=== PATIENT | male | born 1985 | race Caucasian/White ===

== ENCOUNTER 2017-12-22 09:06 | Emergency (ER) | payer BC ==
[2017-12-22 09:16] VITALS: BP 139/91
[2017-12-22] MEDS ORDERED: LORazepam 1 MG Tab PO ONE (09:34)
--- NOTE | 2017-12-22 10:44 | CR ---
Chest: Two views of the chest were obtained. Comparison: No prior chest x-ray. Heart size and mediastinum are normal. Lungs are clear. Plate and screws affix an old healed left clavicle fracture. Impression: 1. Incidental finding. Nothing acute is seen on two-view chest x-ray. Diagnostic code #2
--- NOTE | 2017-12-22 10:53 | EDM.PDOCBH ---
ED HPI GENERAL MEDICAL PROBLEM - General Chief Complaint: Behavioral/Psych Stated Complaint: ANXIETY Time Seen by Provider: 12/22/17 09:21 Source of Information: Reports: Patient History Limitations: Reports: No Limitations - History of Present Illness INITIAL COMMENTS - FREE TEXT/NARRATIVE: The patient presents with an anxiety attack. He was at work when this started. He has been having trouble with anxiety and depression lately. He saw his doctor and he was put on hydroxyzine and venlafaxine. This has been going on for a few weeks. He recently lost his dog and that made things worse. He has lost interest in doing things. He is scheduled to see Dr Tripp. He has no other medical problems. He has no suicidal ideation. He did get chest pain and shortness of breath. Onset: Gradual Duration: Week(s): Location: Reports: Chest Quality: Reports: Pressure Severity: Mild Improves with: Reports: None Worsens with: Reports: None Associated Symptoms: Reports: Chest Pain, Shortness of Breath. Denies: Fever/ Chills, Headaches, Nausea/Vomiting - Related Data Allergies Allergy/AdvReac Type Severity Reaction Status Date / Time codeine Allergy Nausea Verified 08/15/16 03:44 Home Meds: Home Meds LORazepam [Ativan] 1 mg PO Q8H PRN #5 tab 12/22/17 [Rx] Venlafaxine HCl [Venlafaxine ER] 75 mg PO DAILY 12/22/17 [History] hydrOXYzine HCl [Atarax] 25 mg PO QID PRN 12/22/17 [History] Past Medical History Genitourinary History: Reports: Renal Calculus Other Genitourinary History: blocked ureter Psychiatric History: Reports: Anxiety, Depression - Past Surgical History GI Surgical History: Reports: Other (See Below) Social & Family History - Tobacco Use Smoking Status *Q: Never Smoker Second Hand Smoke Exposure: No - Caffeine Use Caffeine Use: Reports: Coffee - Recreational Drug Use Recreational Drug Use: Yes Drug Use in Last 12 Months: Yes Recreational Drug Type: Reports: Marijuana/Hashish - Living Situation & Occupation Living situation: Reports: Occupation: Employed ED ROS GENERAL - Review of Systems Review Of Systems: See Below Constitutional: Reports: No Symptoms HEENT: Reports: No Symptoms Respiratory: Reports: Shortness of Breath Cardiovascular: Reports: Chest Pain Endocrine: Reports: No Symptoms GI/Abdominal: Reports: No Symptoms : Reports: No Symptoms Musculoskeletal: Reports: No Symptoms Skin: Reports: No Symptoms Neurological: Reports: No Symptoms ED EXAM, BEHAVIORAL HEALTH - Physical Exam Exam: See Below Exam Limited By: No Limitations General Appearance: Alert, No Apparent Distress Ears: Normal External Exam Nose: Normal Inspection Head: Atraumatic, Normocephalic Neck: Normal Inspection Respiratory/Chest: No Respiratory Distress, Lungs Clear, Normal Breath Sounds Cardiovascular: Regular Rate, Rhythm, No Edema, No Murmur GI/Abdominal: Soft, Non-Tender, No Organomegaly, No Mass Back Exam: Normal Inspection Extremities: Normal Inspection EKG INTERPRETATION EKG Date: 12/22/17 Time: 10:02 Rhythm: Other (Sinus bradycardia) Rate (Beats/Min): 50 [place]: Normal P-Wave: Present QRS: Normal ST-T: Normal QT: Normal COURSE, BEHAVIORAL HEALTH COMP - Course Vital Signs: Last Vital Signs Temp 97.6 F 12/22/17 09:20 Pulse 57 L 12/22/17 09:20 Resp 19 12/22/17 09:20 BP 139/91 H 12/22/17 09:20 Pulse Ox 100 12/22/17 09:20 Orders, Labs, Meds: Active Orders 24 hr Category Date Time Status Cardiac Monitoring [RC] . DIRECTED Care 12/22/17 09:31 Active EKG Documentation Completion [RC] STAT Care 12/22/17 09:32 Active Laboratory Tests 12/22/17 12/22/17 12/22/17 Range/Units 09:50 09:59 09:59 WBC 14.30 H (4.23-9.07) K/mm3 RBC 5.57 (4.63-6.08) M/mm3 Hgb 16.0 (13.7-17.5) gm/L Hct 46.5 (40.1-51.0) % MCV 83.5 (79.0-92.2) fl MCH 28.7 (25.7-32.2) pg MCHC 34.4 (32.2-35.5) g/dl RDW Std Deviation 41.9 (35.1-43.9) fL Plt Count 251 (163-337) K/mm3 MPV 10.8 (9.4-12.3) fl Neut % (Auto) 82.1 H (34.0-67.9) % Lymph % (Auto) 11.1 L (21.8-53.1) % [place] % (Auto) 5.9 (5.3-12.2) % Eos % (Auto) 0.3 L (0.8-7.0) Baso % (Auto) 0.3 (0.1-1.2) % Neut # (Auto) 11.74 H (1.78-5.38) K/mm3 Lymph # (Auto) 1.59 (1.32-3.57) K/mm3 [place] # (Auto) 0.84 H (0.30-0.82) K/mm3 Eos # (Auto) 0.04 (0.04-0.54) K/mm3 Baso # (Auto) 0.05 (0.01-0.08) K/mm3 Sodium 141 (136-145) mEq/L Potassium 3.6 (3.5-5.1) mEq/L Chloride 103 (98-107) mEq/L Carbon Dioxide 21 (21-32) mEq/L Anion Gap 20.6 H (5-15) BUN 19 H (7-18) mg/dL Creatinine 1.2 (0.7-1.3) mg/dL Est Cr Clr Drug Dosing 98.80 mL/min Estimated GFR (MDRD) > 60 (>60) mL/min BUN/Creatinine Ratio 15.8 (14-18) Glucose 101 (74-106) mg/dL Calcium 9.2 (8.5-10.1) mg/dL Total Bilirubin 1.5 H (0.2-1.0) mg/dL AST 26 (15-37) U/L ALT 37 (16-63) U/L Alkaline Phosphatase 65 (46-116) U/L Troponin I < 0.017 (0.00-0.056) ng/mL Total Protein 8.1 (6.4-8.2) g/dl Albumin 4.7 (3.4-5.0) g/dl Globulin 3.4 gm/dL Albumin/Globulin Ratio 1.4 (1-2) TSH 3rd Generation 2.528 (0.358-3.74) uIU/mL Urine Opiates Screen Negative (NEGATIVE) Ur Buprenorphine Scrn Negative (NEGATIVE) Ur Oxycodone Screen Negative (NEGATIVE) Urine Methadone Screen Negative (NEGATIVE) Ur Propoxyphene Screen Negative (NEGATIVE) Ur Barbiturates Screen Negative (NEGATIVE) Ur Tricyclics Screen Negative (NEGATIVE) Ur Phencyclidine Scrn Negative (NEGATIVE) Ur Amphetamine Screen Negative (NEGATIVE) U Methamphetamines Scrn Negative (NEGATIVE) U Benzodiazepines Scrn Negative (NEGATIVE) U Cocaine Metab Screen Negative (NEGATIVE) U Marijuana (THC) Screen Presumptive positive H (NEGATIVE) Ethyl Alcohol 0.00 (0.00) gm% Medications Discontinued Medications Generic Name Dose Route Start Last Admin Trade Name Freq PRN Reason Stop Dose Admin Lorazepam 1 mg 12/22/17 09:34 12/22/17 09:49 Ativan PO 12/22/17 09:35 1 mg ONETIME ONE Administration Re-Assessment/Re-Exam: I ordered an EKG, labs, CXR and ativan. His EKG shows a sinus bradycardia. His CXR looks good. His WBC was elevated at 14.3. His troponin was negative. His TSH was negative. His marijuana was presumptive positive. His ETOH was zero. Departure - Departure Time of Disposition: 11:05 Disposition: Home, Self-Care 01 Condition: Good Clinical Impression: Anxiety - Discharge Information Prescriptions: LORazepam [Ativan] 1 mg PO Q8H PRN #5 tab PRN Reason: Anxiety Referrals: Ayanna Arevalo, ADMITTANCE ATTENDANT [Primary Care Provider] - 1 Week Forms: ED Department Discharge Additional Instructions: Take your medication as prescribed. You may also take the ativan as needed for anxiety. Follow up with your psychiatrist as scheduled. Please return if you are worse. - My Orders Last 24 Hours: My Active Orders 12/22/17 09:31 Cardiac Monitoring [RC] . DIRECTED 12/22/17 09:32 EKG Documentation Completion [RC] STAT - Assessment/Plan Last 24 Hours: My Active Orders 12/22/17 09:31 Cardiac Monitoring [RC] . DIRECTED 12/22/17 09:32 EKG Documentation Completion [RC] STAT
== END 2017-12-22 11:10 | disposition home or self-care (01) ==
LOC: JD.ED 09:06
DX: F41.9 Anxiety disorder, unspecified (principal); F32.9 Major depressive disorder, single episode, unspecified; Z79.899 Other long term (current) drug therapy; Z88.5 Allergy status to narcotic agent
CPT/HCPCS: 36415; 71046; 80053; 80306; 84443; 84484; 85025; 93005; 99284; A9270; G0480; 93010

== ENCOUNTER 2018-12-26 15:43 | Emergency (ER) | payer SELFPAY ==
[2018-12-26 16:06] VITALS: BP 136/85
--- NOTE | 2018-12-26 16:57 | EDM.PDOC ---
ED HPI GENERAL MEDICAL PROBLEM - General Chief Complaint: ENT Problem Stated Complaint: SORE THROAT Time Seen by Provider: 12/26/18 16:01 Source of Information: Reports: Patient, RN Notes Reviewed History Limitations: Reports: No Limitations - History of Present Illness INITIAL COMMENTS - FREE TEXT/NARRATIVE: Patient is a 33-year-old male who presents to the ED for a sore throat. Patient states that he got sick on Friday with a sore throat, he has went to the walk-in clinic twice since then. He states that he still continues to have throat pain, body aches, headache, stomach pain, dizziness, and bilateral ear pain. He did go to the walk-in clinic again this morning and was swabbed for strep and influenza and both of these were negative, he was told that his symptoms are likely viral in origin. He has been trying TheraFlu, NyQuil and ibuprofen for pain relief and these have provided little relief. He states he hasn't ate or drank much in the past 3 days he states when he tries to eat it hurts. He notes that he has experienced fever/chills, chest pressure, cough without sputum production, shortness of breath, nausea but no vomiting or diarrhea. He states that he hasn't had a good bowel movement since . He states that he has not had any abdominal surgeries so he still has his appendix and gallbladder. He would rate his pain at a 10 out of 10 today. 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 Throat Pain Score (Numeric/FACES): 10 - Related Data Allergies Allergy/AdvReac Type Severity Reaction Status Date / Time codeine AdvReac Nausea Verified 12/26/18 16:06 Home Meds: Home Meds Venlafaxine HCl [Venlafaxine ER] 75 mg PO DAILY 12/22/17 [History] ClonazePAM [KlonoPIN] 0.5 mg PO TID PRN 12/26/18 [History] buPROPion [Wellbutrin] 100 mg PO DAILY 12/26/18 [History] Past Medical History Genitourinary History: Reports: Renal Calculus Other Genitourinary History: blocked ureter Psychiatric History: Reports: Anxiety, Depression - Past Surgical History GI Surgical History: Reports: Hernia, Abdominal Social & Family History - Tobacco Use Smoking Status *Q: Never Smoker - Caffeine Use Caffeine Use: Reports: Coffee, Energy Drinks - Recreational Drug Use Recreational Drug Use: No - Living Situation & Occupation Living situation: Reports: Occupation: Employed ED ROS ENT - Review of Systems Review Of Systems: See Below Constitutional: Reports: Fever, Chills, Malaise, Decreased Appetite HEENT: Reports: Throat Pain. Denies: Throat Swelling Respiratory: Reports: Shortness of Breath, Cough. Denies: Wheezing, Sputum Cardiovascular: Reports: Chest Pain (chest pressure) Endocrine: Reports: No Symptoms GI/Abdominal: Reports: Abdominal Pain, Nausea. Denies: Constipation, Diarrhea, Vomiting : Reports: No Symptoms Musculoskeletal: Reports: Other (Generalized muscle aches) Skin: Reports: No Symptoms Neurological: Reports: No Symptoms Psychiatric: Reports: No Symptoms Hematologic/Lymphatic: Reports: No Symptoms Immunologic: Reports: No Symptoms ED EXAM, ENT - Physical Exam Exam: See Below Exam Limited By: No Limitations General Appearance: Alert, WD/WN, No Apparent Distress Eye Exam: Bilateral Eye: EOMI, Normal Inspection Ears: Normal External Exam, Normal Canal, Hearing Grossly Normal, Normal TMs Nose: Normal Inspection, Injected Turbinates (bilaterally). No: Nasal Discharge Mouth/Throat: Normal Inspection, Normal Gums, Normal Lips, Normal Oropharynx, Normal Teeth Head: Atraumatic, Normocephalic Neck: Normal Inspection, Supple, Full Range of Motion, Tender Lateral ( bilaterallly to palpation) Respiratory/Chest: No Respiratory Distress, Lungs Clear, Normal Breath Sounds, No Accessory Muscle Use, Chest Non-Tender Cardiovascular: Normal Peripheral Pulses, Regular Rate, Rhythm, No Murmur GI/Abdominal: Normal Bowel Sounds, Soft, Non-Tender, No Distention Extremities: Normal Inspection, Normal Capillary Refill Neurological: Alert, Oriented, Normal Cognition, No Motor/Sensory Deficits Psychiatric: Normal Affect, Normal Mood Skin: Warm, Dry, Intact, Normal Color, No Rash Course - Vital Signs Last Recorded V/S: Last Vital Signs Temp 101.0 F H 12/26/18 15:57 Pulse 77 12/26/18 15:57 Resp 21 H 12/26/18 15:57 BP 136/85 12/26/18 15:57 Pulse Ox 100 12/26/18 15:57 - Orders/Labs/Meds Orders: Active Orders 24 hr Category Date Time Status Peripheral IV Care [RC] . DIRECTED Care 12/26/18 17:07 Ordered Sodium Chloride 0.9% [Normal Saline] 1,000 ml Med 12/26/18 17:15 Active IV ASDIRECTED Sodium Chloride 0.9% [Normal Saline] 1,000 ml Med 12/26/18 19:15 Active IV ASDIRECTED Sodium Chloride 0.9% [Saline Flush] Med 12/26/18 17:07 Active 10 ml FLUSH ASDIRECTED PRN Peripheral IV Insertion Adult [OM.PC] Routine Oth 12/26/18 17:06 Ordered Medication Orders Sodium Chloride (Normal Saline) 1,000 mls @ 999 mls/hr IV ASDIRECTED BEAR Last Admin: 12/26/18 19:08 Dose: 999 mls/hr Infusion: 12/26/18 19:06 Dose: 999 mls/hr Admin: 12/26/18 18:05 Dose: 999 mls/hr Sodium Chloride (Normal Saline) 1,000 mls @ 999 mls/hr IV ASDIRECTED BEAR Last Admin: 12/26/18 19:08 Dose: 999 mls/hr Sodium Chloride (Saline Flush) 10 ml FLUSH ASDIRECTED PRN PRN Reason: Keep Vein Open Last Admin: 12/26/18 18:02 Dose: 10 ml Labs: Laboratory Tests 12/26/18 12/26/18 Range/Units 17:45 17:45 WBC 8.33 (4.23-9.07) K/mm3 RBC 5.03 (4.63-6.08) M/mm3 Hgb 14.3 (13.7-17.5) gm/L Hct 42.4 (40.1-51.0) % MCV 84.3 (79.0-92.2) fl MCH 28.4 (25.7-32.2) pg MCHC 33.7 (32.2-35.5) g/dl RDW Std Deviation 41.4 (35.1-43.9) fL Plt Count 182 (163-337) K/mm3 MPV 10.9 (9.4-12.3) fl Neutrophils % (Manual) 82 H (40-60) % Band Neutrophils % 0 (0-10) % Lymphocytes % (Manual) 11 L (20-40) % Atypical Lymphs % 0 % Monocytes % (Manual) 7 (2-10) % Eosinophils % (Manual) 0 L (0.8-7.0) % Basophils % (Manual) 0 L (0.2-1.2) Platelet Estimate Adequate Plt Morphology Comment Normal RBC Morph Comment Normal Sodium 134 L (136-145) mEq/L Potassium 3.8 (3.5-5.1) mEq/L Chloride 97 L (98-107) mEq/L Carbon Dioxide 21 (21-32) mEq/L Anion Gap 19.8 H (5-15) BUN 12 (7-18) mg/dL Creatinine 1.2 (0.7-1.3) mg/dL Est Cr Clr Drug Dosing 97.90 mL/min Estimated GFR (MDRD) > 60 (>60) mL/min BUN/Creatinine Ratio 10.0 L (14-18) Glucose 91 (74-106) mg/dL Calcium 8.7 (8.5-10.1) mg/dL Total Bilirubin 1.1 H (0.2-1.0) mg/dL AST 18 (15-37) U/L ALT 27 (16-63) U/L Alkaline Phosphatase 63 (46-116) U/L Total Protein 7.8 (6.4-8.2) g/dl Albumin 3.9 (3.4-5.0) g/dl Globulin 3.9 gm/dL Albumin/Globulin Ratio 1.0 (1-2) Meds: Medications Generic Name Dose Route Start Last Admin Trade Name Freq PRN Reason Stop Dose Admin Sodium Chloride 1,000 mls @ 999 mls/hr 12/26/18 17:15 12/26/18 19:08 Normal Saline IV 999 mls/hr ASDIRECTED BEAR Administration Sodium Chloride 1,000 mls @ 999 mls/hr 12/26/18 19:15 12/26/18 19:08 Normal Saline IV 999 mls/hr ASDIRECTED BEAR Administration Sodium Chloride 10 ml 12/26/18 17:07 12/26/18 18:02 Saline Flush FLUSH 10 ml ASDIRECTED PRN Administration Keep Vein Open Discontinued Medications Generic Name Dose Route Start Last Admin Trade Name Freq PRN Reason Stop Dose Admin Ketorolac Tromethamine 30 mg 12/26/18 17:41 12/26/18 18:01 Toradol IVPUSH 12/26/18 17:42 30 mg ONETIME ONE Administration - Re-Assessments/Exams Free Text/Narrative Re-Assessment/Exam: 12/26/18 17:49 Patient presents to the ED for the evaluation of a sore throat. Due to him not being able to eat for the past 3 days because of the sore throat. Have ordered a CBC, CMP and one bag of IV fluids with 30 mg IV Toradol for initial management. 12/26/18 18:49 His labs are back and his anion gap is elevated but he does not have an elevated white count. He will receive the first thing of fluids and will likely need a second, but he should be able to be discharged home after the second bag of fluids. Departure - Departure Time of Disposition: 20:04 Disposition: Home, Self-Care 01 Condition: Fair Clinical Impression: Viral URI - Discharge Information *PRESCRIPTION DRUG MONITORING PROGRAM REVIEWED*: No *COPY OF PRESCRIPTION DRUG MONITORING REPORT IN PATIENT YUDITH: No Instructions: Viral Respiratory Infection, [id number] Referrals: Sandip Parham Jr, MD [Primary Care Provider] - Forms: ED Department Discharge Additional Instructions: You have been evaluated in the ED tonight for your sore throat and cold symptoms. Your labs demonstrated that he did not have a bacterial infection present tonight. They did however demonstrate that you were dehydrated. You were given to bags of fluid in the ER for this. Please take 500 mg Tylenol/600 mg ibuprofen every 6 when necessary for general pain. Please do not exceed 4000 mg Tylenol or 3200 mg ibuprofen in a 24-hour time span. You may also take other [id number] cold medications, but be careful of the acetaminophen (tylenol) content of these medications and that you are not getting too much Tylenol. Please increase her fluid intake, and stick to a clear liquid diet for the next 24-48 hours with advance to bland as tolerated. He is return to the ED if your symptoms change or worsen. - My Orders Last 24 Hours: My Active Orders 12/26/18 17:06 Peripheral IV Insertion Adult [OM.PC] Routine 12/26/18 17:07 Peripheral IV Care [RC] . DIRECTED Sodium Chloride 0.9% [Saline Flush] 10 ml FLUSH ASDIRECTED PRN 12/26/18 17:15 Sodium Chloride 0.9% [Normal Saline] 1,000 ml IV ASDIRECTED 12/26/18 19:15 Sodium Chloride 0.9% [Normal Saline] 1,000 ml IV ASDIRECTED - Assessment/Plan Last 24 Hours: My Active Orders 12/26/18 17:06 Peripheral IV Insertion Adult [OM.PC] Routine 12/26/18 17:07 Peripheral IV Care [RC] . DIRECTED Sodium Chloride 0.9% [Saline Flush] 10 ml FLUSH ASDIRECTED PRN 12/26/18 17:15 Sodium Chloride 0.9% [Normal Saline] 1,000 ml IV ASDIRECTED 12/26/18 19:15 Sodium Chloride 0.9% [Normal Saline] 1,000 ml IV ASDIRECTED
[2018-12-26] MEDS ORDERED: Sodium Chloride 0.9% 10 ML Syringe FLUSH PRN (17:07)
[2018-12-26] MEDS ORDERED: Ketorolac 30 MG/ML SDV IVPUSH ONE (17:41)
[2018-12-26] MEDS: Sodium Chloride 0.9% 1,000 ML IV SCH ×2 (18:05→19:08)
[2018-12-26] MEDS ORDERED: Sodium Chloride 0.9% 1,000 ML IV SCH (19:15)
== END 2018-12-26 20:20 | disposition home or self-care (01) ==
LOC: JD.ED 15:43
DX: J06.9 Acute upper respiratory infection, unspecified (principal); F41.9 Anxiety disorder, unspecified; F32.9 Major depressive disorder, single episode, unspecified; Z79.899 Other long term (current) drug therapy; Z88.5 Allergy status to narcotic agent
CPT/HCPCS: 36415; 80053; 85007; 85027; 96361; 96374; 99283; J1885; J7040

== ENCOUNTER 2020-03-27 13:33 | Inpatient (IN) | payer BC, OTHER ==
[2020-03-27] MEDS ORDERED: Sodium Chloride 0.9% 10 ML Syringe FLUSH PRN (13:53)
--- NOTE | 2020-03-27 13:59 | EDM.PDOC ---
ED HPI GENERAL MEDICAL PROBLEM - General Chief Complaint: Skin Complaint Stated Complaint: SKIN COMPLAINT (INFECTION) Time Seen by Provider: 03/27/20 13:46 - History of Present Illness INITIAL COMMENTS - FREE TEXT/NARRATIVE: Patient is a 34-year-old male who presents to the emergency department with complaints of skin infection to his face. 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 He states that he feels the area on his right cheek is the worst. He has had no nausea and vomiting, however he was feeling chilled last night. He was seen in the clinic prior to coming to the ER and was found to have a temperature of 101. Temperature on triage was found to be 99.5. Patient denies any known history of MRSA. Anterior Face/Facial Pain Score (Numeric/FACES): 10 - Related Data Allergies Allergy/AdvReac Type Severity Reaction Status Date / Time codeine AdvReac Nausea Verified 03/27/20 13:44 Home Meds: Home Meds ClonazePAM [KlonoPIN] 0.5 mg PO TID PRN 12/26/18 [History] buPROPion [Wellbutrin] 100 mg PO DAILY 12/26/18 [History] Past Medical History Genitourinary History: Reports: Renal Calculus Other Genitourinary History: blocked ureter Psychiatric History: Reports: Anxiety, Depression Dermatologic History: Reports: Other (See Below) - Past Surgical History GI Surgical History: Reports: Hernia, Abdominal Social & Family History - Tobacco Use Smoking Status *Q: Never Smoker - Caffeine Use Caffeine Use: Reports: Coffee - Recreational Drug Use Recreational Drug Use: No - Living Situation & Occupation Living situation: Reports: Occupation: Employed ED ROS GENERAL - Review of Systems Review Of Systems: Comprehensive ROS is negative, except as noted in HPI. ED EXAM, SKIN/RASH Exam: See Below Exam Limited By: No Limitations General Appearance: Alert, WD/WN, No Apparent Distress Respiratory/Chest: No Respiratory Distress, Lungs Clear, Normal Breath Sounds, No Accessory Muscle Use, Chest Non-Tender Cardiovascular: Normal Peripheral Pulses, Regular Rate, Rhythm, No Edema, No Gallop, No JVD, No Murmur, No Rub Skin: Other (Errythematous pustules covering the face. Some of them are weeping a clear yellowish fluid. There is marked erythema over the right cheek and anterior to the left ear.) Course - Vital Signs Last Recorded V/S: Last Vital Signs Temp 99.5 F 03/27/20 13:41 Pulse 70 03/27/20 13:41 Resp 18 03/27/20 13:41 BP 133/87 03/27/20 13:52 Pulse Ox 99 03/27/20 13:41 - Orders/Labs/Meds Orders: Active Orders 24 hr Category Date Time Status Peripheral IV Care [RC] . DIRECTED Care 03/27/20 13:54 Active CULTURE BLOOD [BC] Stat Lab 03/27/20 14:05 Received CULTURE BLOOD [BC] Stat Lab 03/27/20 14:10 Received CULTURE WOUND [RM] Stat Lab 03/27/20 13:55 Received LACTIC ACID [CHEM] Stat Lab 03/27/20 15:39 Ordered Pharmacy to Dose - Vancomycin Med 03/27/20 14:05 Active 1 dose .XX ONETIME PRN Sodium Chloride 0.9% [Saline Flush] Med 03/27/20 13:53 Active 10 ml FLUSH ASDIRECTED PRN Vancomycin 1 gm Med 03/27/20 23:00 Pending Vancomycin 250 mg Sodium Chloride 0.9% [Normal Saline] 250 ml IV Q8H Vancomycin 2 gm Med 03/27/20 14:45 Active Sodium Chloride 0.9% [Normal Saline] 500 ml IV ONETIME Blood Culture x2 Reflex Set [OM.PC] Stat Oth 03/27/20 13:53 Ordered Peripheral IV Insertion Adult [OM.PC] Stat Oth 03/27/20 13:53 Ordered Medication Orders Vancomycin HCl 2 gm/ Sodium (Chloride) 500 mls @ 250 mls/hr IV ONETIME ONE Stop: 03/27/20 16:44 Last Admin: 03/27/20 15:30 Dose: 250 mls/hr Vancomycin HCl 1 gm/Vancomycin HCl 250 mg/ Sodium Chloride 250 mls @ 166.667 mls/hr IV Q8H BEAR Sodium Chloride (Saline Flush) 10 ml FLUSH ASDIRECTED PRN PRN Reason: Keep Vein Open Last Admin: 03/27/20 14:22 Dose: 10 ml Vancomycin HCl (Pharmacy To Dose - Vancomycin) 1 dose .XX ONETIME PRN PRN Reason: RX TO DOSE VANCO Last Admin: 03/27/20 15:30 Dose: 2 gram Labs: Laboratory Tests 03/27/20 03/27/20 Range/Units 14:10 14:10 WBC 9.45 H (4.23-9.07) K/mm3 RBC 5.08 (4.63-6.08) M/mm3 Hgb 14.8 (13.7-17.5) gm/dl Hct 44.7 (40.1-51.0) % MCV 88.0 D (79.0-92.2) fl MCH 29.1 (25.7-32.2) pg MCHC 33.1 (32.2-35.5) g/dl RDW Std Deviation 45.4 H (35.1-43.9) fL Plt Count 218 (163-337) K/mm3 MPV 11.0 (9.4-12.3) fl Neut % (Auto) 78.8 H (34.0-67.9) % Lymph % (Auto) 9.1 L (21.8-53.1) % [place] % (Auto) 11.1 (5.3-12.2) % Eos % (Auto) 0.4 L (0.8-7.0) Baso % (Auto) 0.3 (0.1-1.2) % Neut # (Auto) 7.44 H (1.78-5.38) K/mm3 Lymph # (Auto) 0.86 L (1.32-3.57) K/mm3 [place] # (Auto) 1.05 H (0.30-0.82) K/mm3 Eos # (Auto) 0.04 (0.04-0.54) K/mm3 Baso # (Auto) 0.03 (0.01-0.08) K/mm3 Manual Slide Review Abnormal smear Sodium 138 (136-145) mEq/L Potassium 3.9 (3.5-5.1) mEq/L Chloride 103 (98-107) mEq/L Carbon Dioxide 27 (21-32) mEq/L Anion Gap 11.9 (5-15) BUN 12 (7-18) mg/dL Creatinine 1.2 (0.7-1.3) mg/dL Est Cr Clr Drug Dosing 97.00 mL/min Estimated GFR (MDRD) > 60 (>60) mL/min BUN/Creatinine Ratio 10.0 L (14-18) Glucose 96 (74-106) mg/dL Calcium 8.5 (8.5-10.1) mg/dL Total Bilirubin 1.0 (0.2-1.0) mg/dL AST 18 (15-37) U/L ALT 26 (16-63) U/L Alkaline Phosphatase 66 (46-116) U/L C-Reactive Protein 2.0 H* (<1.0) mg/dL Total Protein 7.5 (6.4-8.2) g/dl Albumin 4.0 (3.4-5.0) g/dl Globulin 3.5 gm/dL Albumin/Globulin Ratio 1.1 (1-2) Meds: Medications Generic Name Dose Route Start Last Admin Trade Name Freq PRN Reason Stop Dose Admin Vancomycin HCl 2 gm/ Sodium 500 mls @ 250 mls/hr 03/27/20 14:45 03/27/20 15: 30 Chloride IV 03/27/20 16:44 250 mls/hr ONETIME ONE Administration Vancomycin HCl 1 gm/ 250 mls @ 166.667 mls/hr 03/27/20 23:00 Vancomycin HCl 250 mg/ Sodium IV Chloride Q8H BEAR Sodium Chloride 10 ml 03/27/20 13:53 03/27/20 14:22 Saline Flush FLUSH 10 ml ASDIRECTED PRN Administration Keep Vein Open Vancomycin HCl 1 dose 03/27/20 14:05 03/27/20 15:30 Pharmacy To Dose - Vancomycin .XX 2 gram ONETIME PRN Administration RX TO DOSE VANCO Discontinued Medications Generic Name Dose Route Start Last Admin Trade Name Freq PRN Reason Stop Dose Admin Ceftriaxone Sodium 2 gm/ 100 mls @ 200 mls/hr 03/27/20 14:01 03/27/20 14:21 Sodium Chloride IV 03/27/20 14:30 200 mls/hr ONETIME ONE Administration - Re-Assessments/Exams Free Text/Narrative Re-Assessment/Exam: On exam, patient has a cellulitis of the face. I have ordered a CBC, CMP, CRP, blood cultures, wound cultures and lactic acid. Once blood cultures are collected, we will start him on Rocephin and vancomycin. Plan will be to speak to the hospitalist regarding admission once results are completed. 03/27/20 1550 Hematology showed a WBC of 9.45, neutrophil percent 78.8, absolute neutrophil 7.44, CRP 2.0. Lactic acid is pending. Case discussed with Dr. Castro. She will admit the patient. Departure - Departure Time of Disposition: 15:50 Disposition: Admitted As Inpatient 68 Condition: Good Clinical Impression: Cellulitis Qualifiers: Site of cellulitis: face Qualified Code(s): L03.211 - Cellulitis of face - Discharge Information Referrals: Sandip Parham Jr, MD [Primary Care Provider] - Forms: ED Department Discharge Sepsis Event Note - Evaluation Sepsis Screening Result: No Definite Risk - Focused Exam Vital Signs: Vital Signs Temp Pulse Resp BP Pulse Ox 03/27/20 13:52 133/87 03/27/20 13:41 99.5 F 70 18 99 Date Exam was Performed: 03/27/20 Time Exam was Performed: 16:06 - My Orders Last 24 Hours: My Active Orders 03/27/20 13:53 Sodium Chloride 0.9% [Saline Flush] 10 ml FLUSH ASDIRECTED PRN Blood Culture x2 Reflex Set [OM.PC] Stat Peripheral IV Insertion Adult [OM.PC] Stat 03/27/20 13:54 Peripheral IV Care [RC] . DIRECTED 03/27/20 13:55 CULTURE WOUND [RM] Stat 03/27/20 14:05 CULTURE BLOOD [BC] Stat Pharmacy to Dose - Vancomycin 1 dose .XX ONETIME PRN 03/27/20 14:10 CULTURE BLOOD [BC] Stat 03/27/20 14:45 Vancomycin 2 gm Sodium Chloride 0.9% [Normal Saline] 500 ml IV ONETIME 03/27/20 15:39 LACTIC ACID [CHEM] Stat 03/27/20 23:00 Vancomycin 1 gm Vancomycin 250 mg Sodium Chloride 0.9% [Normal Saline] 250 ml IV Q8H - Assessment/Plan Last 24 Hours: My Active Orders 03/27/20 13:53 Sodium Chloride 0.9% [Saline Flush] 10 ml FLUSH ASDIRECTED PRN Blood Culture x2 Reflex Set [OM.PC] Stat Peripheral IV Insertion Adult [OM.PC] Stat 03/27/20 13:54 Peripheral IV Care [RC] . DIRECTED 03/27/20 13:55 CULTURE WOUND [RM] Stat 03/27/20 14:05 CULTURE BLOOD [BC] Stat Pharmacy to Dose - Vancomycin 1 dose .XX ONETIME PRN 03/27/20 14:10 CULTURE BLOOD [BC] Stat 03/27/20 14:45 Vancomycin 2 gm Sodium Chloride 0.9% [Normal Saline] 500 ml IV ONETIME 03/27/20 15:39 LACTIC ACID [CHEM] Stat 03/27/20 23:00 Vancomycin 1 gm Vancomycin 250 mg Sodium Chloride 0.9% [Normal Saline] 250 ml IV Q8H
[2020-03-27] MEDS ORDERED: cefTRIAXone 2 GM in Sodium Chloride 0.9% 100 ML IV ONE (14:01)
[2020-03-27] MEDS ORDERED: Vancomycin 2 GM in Sodium Chloride 0.9% 500 ML IV ONE (14:45)
[2020-03-27] MEDS ORDERED: Acetaminophen 325 MG Tab PO PRN (17:03)
[2020-03-27] MEDS ORDERED: Ondansetron 4 MG/2 ML SDV IV PRN (17:03)
--- NOTE | 2020-03-27 17:03 | PCM.HP.2 ---
H&P History of Present Illness - General Date of Service: 03/27/20 - History of Present Illness Initial Comments - Free Text/Narative: Patient is a 34-year-old male who presents to the emergency department with complaints of skin infection to his face. 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 He states that he feels the area on his right cheek is the worst. He has had no nausea and vomiting, however he was feeling chilled last night. He was seen in the clinic prior to coming to the ER and was found to have a temperature of 101. Temperature on triage was found to be 99.5. Patient denies any known history of MRSA. Anterior Face/Facial Pain Score (Numeric/FACES): 10 - Related Data Allergies/Adverse Reactions: Allergies Allergy/AdvReac Type Severity Reaction Status Date / Time codeine AdvReac Nausea Verified 03/27/20 18:15 Home Medications: Home Meds ClonazePAM [KlonoPIN] 0.5 mg PO TID PRN 12/26/18 [History] buPROPion [Wellbutrin] 100 mg PO DAILY 12/26/18 [History] Past Medical History Genitourinary History: Reports: Renal Calculus Other Genitourinary History: blocked ureter Psychiatric History: Reports: Anxiety, Depression Dermatologic History: Reports: Other (See Below) - Past Surgical History GI Surgical History: Reports: Hernia, Abdominal Social & Family History - Tobacco Use Smoking Status *Q: Never Smoker - Caffeine Use Caffeine Use: Reports: Coffee - Recreational Drug Use Recreational Drug Use: No - Living Situation & Occupation Living situation: Reports: Occupation: Employed H&P Review of Systems - Review of Systems: Review Of Systems: See Below General: Reports: Fever. Denies: Chills, Malaise, Weakness, Fatigue, Night Sweats, Diaphoresis, Decreased Appetite HEENT: Denies: Post Nasal Drip, Sinus Congestion, Sore Throat, Vertigo, Visual Changes Pulmonary: Denies: Shortness of Breath, Wheezing, Pleuritic Chest Pain, Cough, Sputum, Hemoptysis Cardiovascular: Denies: Chest Pain, Palpitations, Dyspnea on Exertion, Orthopnea , PND, Edema, Lightheadedness, Syncope, Claudication Gastrointestinal: Denies: Abdominal Pain, Anorexia, Black Stool, Bloody Stool, Constipation, Diarrhea, Decreased Appetite, Difficulty Swallowing, Distension, Melena, Nausea, Vomiting Genitourinary: Denies: Dysuria, Frequency, Burning, Pain, Urgency, Incontinence , Hematuria Musculoskeletal: Denies: Joint Pain, Joint Swelling, Muscle Pain, Muscle Stiffness Skin: Reports: Rash, Erythema, Change in Color, Other (pain described as burning , pustular lesions throughout, mainly on forehead) Psychiatric: Reports: Depression. Denies: Confusion, Mood Lability, Anxiety Neurological: Denies: Confusion, Dizziness, Headache, Numbness Exam - Exam Exam: See Below - Vital Signs Vital Signs: Last Vital Signs Temp 99.5 F 03/27/20 13:41 Pulse 70 03/27/20 13:41 Resp 18 03/27/20 13:41 BP 133/87 03/27/20 13:52 Pulse Ox 99 03/27/20 13:41 Weight: 113.398 kg - Exam General: Alert, Oriented, Cooperative, Mild Distress HEENT: Conjunctiva Clear, EACs Clear, EOMI, Hearing Intact, Mucosa Moist & [place] Neck: Supple, Trachea Midline Lungs: Clear to Auscultation, Normal Respiratory Effort. No: Crackles, Rales, Rhonchi, Rub, Stridor, Wheezing Cardiovascular: Regular Rate, Regular Rhythm. No: Systolic Murmur, Diastolic Murmur, Rubs, Gallop/S3, Gallop/S4 GI/Abdominal Exam: Normal Bowel Sounds, Soft, Non-Tender, Distended. No: Guarding, Rigid, Rebound Extremities: Normal Inspection, Normal Range of Motion Skin: Other (pustular rash thorughout face, erythematous base, warm to touch) Neuro Extensive - Mental Status: Alert, Oriented x3 Psychiatric: Alert, Depressed - Patient Data Result Diagrams: 03/27/20 14:10 03/27/20 14:10 Sepsis Event Note - Evaluation Sepsis Screening Result: No Definite Risk - Focused Exam Vital Signs: Vital Signs Temp Pulse Resp BP Pulse Ox 03/27/20 13:52 133/87 03/27/20 13:41 99.5 F 70 18 99 Date Exam was Performed: 03/27/20 Time Exam was Performed: 19:06 - Problem List (1) Darier's disease SNOMED Code(s): 984414811, 205953558 ICD Code: Q82.8 - OTHER SPECIFIED CONGENITAL MALFORMATIONS OF SKIN Status: Acute Current Visit: Yes (2) Depression SNOMED Code(s): 74586990 ICD Code: F32.9 - MAJOR DEPRESSIVE DISORDER, SINGLE EPISODE, UNSPECIFIED Status: Acute Current Visit: Yes (3) Cellulitis SNOMED Code(s): 789925354 ICD Code: L03.90 - CELLULITIS, UNSPECIFIED Status: Acute Current Visit: Yes Qualifiers: Site of cellulitis: face Qualified Code(s): L03.211 - Cellulitis of face (4) Anxiety SNOMED Code(s): 00727739 ICD Code: F41.9 - ANXIETY DISORDER, UNSPECIFIED Status: Acute Current Visit: No Problem List Initiated/Reviewed/Updated: Yes Assessment/Plan Comment:: ASSESSMENT -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 -Exacerbation since Friday -Fever last night -Pain worsened, described as 7-10/10 burn like sensation -Last exacerbation over 6 months ago -No history of MRSA -Follows with psychiatry for depression, compliant with medications -Daily Bupropion -As needed clonazepam, uses TID every other day -Denies suicidal or homicidal ideation PLAN BY PROBLEMS Darier's disease Cellulitis -Rocephin and Vancomycin -Follow up on wound and blood culture -Trend temperature and panculture if febrile -Pain control Depression Anxiety -Continue Bupropion and clonazepam PROPHYLAXIS DVT-ambulation GI-contraindicated CODE STATUS: FULL CODE DISPOSITION: Patient will be admitted for IV antibiotics and pain control - Mortality Measure Prognosis:: Good
[2020-03-27] MEDS: Ketorolac 30 MG/ML SDV IV PRN (18:45)
[2020-03-27] MEDS: Vancomycin 1 GM, Vancomycin 250 MG in Sodium Chloride 0.9% 250 ML IV SCH (22:41)
[2020-03-27] MEDS: Morphine 2 MG/ML SYRINGE IVPUSH PRN (22:44)
[2020-03-28] MEDS: Ketorolac 30 MG/ML SDV IV PRN ×2 (05:03→12:44)
[2020-03-28] MEDS: Vancomycin 1 GM, Vancomycin 250 MG in Sodium Chloride 0.9% 250 ML IV SCH ×3 (06:26→23:17)
[2020-03-28] MEDS ORDERED: ClonazePAM 0.5 MG Tab PO PRN (08:24)
[2020-03-28] MEDS ORDERED: Magnesium Sulfate/Water 2 GM in Premix Bag 1 BAG IV ONE (08:26)
--- NOTE | 2020-03-28 09:08 | PCM.PN ---
- General Info Date of Service: 03/28/20 Admission Dx/Problem (Free Text): Cellulitis Subjective Update: Patient states that he feels like he might be slightly better. He has not had any fevers since admission. He has not moved his bowels. Appetite is good. Patient states that in the past he has had a herpetic outbreak on the right side of his face that caused significant pain. He has a similar pain on the right side of his face in the area where there is vesicles that are weeping clear fluid. - Review of Systems General: Reports: No Symptoms HEENT: Reports: Other (Face redness and pain diffusely worse on the forehead and cheeks.) Pulmonary: Reports: No Symptoms Cardiovascular: Reports: No Symptoms Gastrointestinal: Reports: No Symptoms Musculoskeletal: Reports: No Symptoms Neurological: Reports: No Symptoms Psychiatric: Reports: No Symptoms - Patient Data Vitals - Most Recent: Last Vital Signs Temp 98.1 F 03/28/20 07:51 Pulse 58 L 03/28/20 07:51 Resp 16 03/28/20 07:51 BP 128/74 03/28/20 07:51 Pulse Ox 99 03/28/20 07:51 Weight - Most Recent: 254 lb 3.2 oz I&O - Last 24 Hours: Intake & Output 03/27/20 03/28/20 03/28/20 22:59 06:59 14:59 Intake Total 240 2440 Output Total 800 Balance 240 1640 Lab Results Last 24 Hours: Laboratory Results - last 24 hr 03/27/20 03/27/20 03/27/20 Range/Units 14:05 14:10 14:10 WBC 9.45 H (4.23-9.07) K/mm3 RBC 5.08 (4.63-6.08) M/mm3 Hgb 14.8 (13.7-17.5) gm/dl Hct 44.7 (40.1-51.0) % MCV 88.0 D (79.0-92.2) fl MCH 29.1 (25.7-32.2) pg MCHC 33.1 (32.2-35.5) g/dl RDW Std Deviation 45.4 H (35.1-43.9) fL Plt Count 218 (163-337) K/mm3 MPV 11.0 (9.4-12.3) fl Neut % (Auto) 78.8 H (34.0-67.9) % Lymph % (Auto) 9.1 L (21.8-53.1) % [place] % (Auto) 11.1 (5.3-12.2) % Eos % (Auto) 0.4 L (0.8-7.0) Baso % (Auto) 0.3 (0.1-1.2) % Neut # (Auto) 7.44 H (1.78-5.38) K/mm3 Lymph # (Auto) 0.86 L (1.32-3.57) K/mm3 [place] # (Auto) 1.05 H (0.30-0.82) K/mm3 Eos # (Auto) 0.04 (0.04-0.54) K/mm3 Baso # (Auto) 0.03 (0.01-0.08) K/mm3 Manual Slide Review Abnormal smear Sodium 138 (136-145) mEq/L Potassium 3.9 (3.5-5.1) mEq/L Chloride 103 (98-107) mEq/L Carbon Dioxide 27 (21-32) mEq/L Anion Gap 11.9 (5-15) BUN 12 (7-18) mg/dL Creatinine 1.2 (0.7-1.3) mg/dL Est Cr Clr Drug Dosing 97.00 mL/min Estimated GFR (MDRD) > 60 (>60) mL/min BUN/Creatinine Ratio 10.0 L (14-18) Glucose 96 (74-106) mg/dL Lactic Acid 0.7 (0.4-2.0) mmol/L Calcium 8.5 (8.5-10.1) mg/dL Phosphorus (2.6-4.7) mg/dL Magnesium (1.8-2.4) mg/dl Total Bilirubin 1.0 (0.2-1.0) mg/dL AST 18 (15-37) U/L ALT 26 (16-63) U/L Alkaline Phosphatase 66 (46-116) U/L C-Reactive Protein 2.0 H* (<1.0) mg/dL Total Protein 7.5 (6.4-8.2) g/dl Albumin 4.0 (3.4-5.0) g/dl Globulin 3.5 gm/dL Albumin/Globulin Ratio 1.1 (1-2) 03/28/20 03/28/20 Range/Units 04:52 04:52 WBC 8.91 (4.23-9.07) K/mm3 RBC 5.23 (4.63-6.08) M/mm3 Hgb 15.0 (13.7-17.5) gm/dl Hct 46.3 (40.1-51.0) % MCV 88.5 (79.0-92.2) fl MCH 28.7 (25.7-32.2) pg MCHC 32.4 (32.2-35.5) g/dl RDW Std Deviation 46.2 H (35.1-43.9) fL Plt Count 201 (163-337) K/mm3 MPV 11.7 (9.4-12.3) fl Neut % (Auto) 76.8 H (34.0-67.9) % Lymph % (Auto) 8.4 L (21.8-53.1) % [place] % (Auto) 13.0 H (5.3-12.2) % Eos % (Auto) 0.8 (0.8-7.0) Baso % (Auto) 0.6 (0.1-1.2) % Neut # (Auto) 6.84 H (1.78-5.38) K/mm3 Lymph # (Auto) 0.75 L (1.32-3.57) K/mm3 [place] # (Auto) 1.16 H (0.30-0.82) K/mm3 Eos # (Auto) 0.07 (0.04-0.54) K/mm3 Baso # (Auto) 0.05 (0.01-0.08) K/mm3 Manual Slide Review Abnormal smear Sodium 140 (136-145) mEq/L Potassium 4.3 (3.5-5.1) mEq/L Chloride 102 (98-107) mEq/L Carbon Dioxide 26 (21-32) mEq/L Anion Gap 16.3 H (5-15) BUN 13 (7-18) mg/dL Creatinine 1.3 (0.7-1.3) mg/dL Est Cr Clr Drug Dosing 89.54 mL/min Estimated GFR (MDRD) > 60 (>60) mL/min BUN/Creatinine Ratio 10.0 L (14-18) Glucose 100 (74-106) mg/dL Lactic Acid (0.4-2.0) mmol/L Calcium 8.3 L (8.5-10.1) mg/dL Phosphorus 3.4 (2.6-4.7) mg/dL Magnesium 1.7 L (1.8-2.4) mg/dl Total Bilirubin (0.2-1.0) mg/dL AST (15-37) U/L ALT (16-63) U/L Alkaline Phosphatase (46-116) U/L C-Reactive Protein (<1.0) mg/dL Total Protein (6.4-8.2) g/dl Albumin (3.4-5.0) g/dl Globulin gm/dL Albumin/Globulin Ratio (1-2) [place] Results Last 24 Hours: Wound culture: Gram-positive cocci likely staph Med Orders - Current: Current Medications Acetaminophen (Tylenol) 650 mg PO Q4H PRN PRN Reason: Pain (Mild 1-3)/fever Clonazepam (Klonopin) 0.5 mg PO TID PRN PRN Reason: Anxiety Vancomycin HCl 1 gm/Vancomycin HCl 250 mg/ Sodium Chloride 250 mls @ 166.667 mls/hr IV Q8H BEAR Last Admin: 03/28/20 06:26 Dose: 166.667 mls/hr Magnesium Sulfate 2 gm/ Premix 50 mls @ 25 mls/hr IV ONETIME ONE Stop: 03/28/20 10:25 Ketorolac Tromethamine (Toradol) 30 mg IV Q6H PRN PRN Reason: Pain (moderate 4-6) Last Admin: 03/28/20 05:03 Dose: 30 mg Morphine Sulfate (Morphine) 2 mg IVPUSH Q6H PRN PRN Reason: Pain (severe 7-10) Stop: 03/28/20 17:04 Last Admin: 03/27/20 22:44 Dose: 2 mg Non-Formulary Medication (Bupropion) 100 mg PO DAILY [facility] Ondansetron HCl (Zofran) 4 mg IV Q6H PRN PRN Reason: Nausea/Vomiting Sodium Chloride (Saline Flush) 10 ml FLUSH ASDIRECTED PRN PRN Reason: Keep Vein Open Last Admin: 03/27/20 14:22 Dose: 10 ml Vancomycin HCl (Pharmacy To Dose - Vancomycin) 1 dose .XX ONETIME PRN PRN Reason: RX TO DOSE VANCO Last Admin: 03/27/20 15:30 Dose: 2 gram Discontinued Medications Ceftriaxone Sodium 2 gm/ (Sodium Chloride) 100 mls @ 200 mls/hr IV ONETIME ONE Stop: 03/27/20 14:30 Last Admin: 03/27/20 14:21 Dose: 200 mls/hr Vancomycin HCl 2 gm/ Sodium (Chloride) 500 mls @ 250 mls/hr IV ONETIME ONE Stop: 03/27/20 16:44 Last Admin: 03/27/20 15:30 Dose: 250 mls/hr - Exam Quality Assessment: No: Supplemental Oxygen General: Alert, Oriented HEENT: Pupils Equal, Mucous Membr. Moist/[place], Other (Erythema and swelling of the forehead, bilateral cheeks, and along both bilateral mandibles. Patient has yellow crusty hyperkeratotic scales on the forehead and cheeks. Right face in the temporal area has several clear fluid draining vesicles that are exquisitely tender.) Neck: Supple Lungs: Clear to Auscultation, Normal Respiratory Effort Cardiovascular: Regular Rate, Regular Rhythm GI/Abdominal Exam: Normal Bowel Sounds, Soft, Non-Tender, No Organomegaly, No Distention, No Abnormal Bruit, No Mass, Pelvis Stable Extremities: Normal Inspection, Normal Range of Motion, Non-Tender, No Pedal Edema, Normal Capillary Refill Skin: Rash (As above. Patient also has erythema and keratosis follicularis on the left upper chest.) Neurological: No New Focal Deficit Psy/Mental Status: Alert, Normal Affect, Normal Mood Sepsis Event Note - Evaluation Sepsis Screening Result: No Definite Risk - Focused Exam Vital Signs: Vital Signs Temp Pulse Resp BP Pulse Ox 03/28/20 07:51 98.1 F 58 L 16 128/74 99 03/28/20 04:56 98.2 F 62 16 124/76 99 03/27/20 22:49 98.2 F 58 L 16 122/59 L 99 Date Exam was Performed: 03/28/20 Time Exam was Performed: 10:24 - Problem List Review Problem List Initiated/Reviewed/Updated: Yes - My Orders Last 24 Hours: My Active Orders 03/28/20 08:24 ClonazePAM [KlonoPIN] 0.5 mg PO TID PRN 03/28/20 08:26 Magnesium Sulfate/Water [Magnesium Sulfate in Water Premix] 2 gm Premix Bag 1 bag IV ONETIME 03/28/20 09:00 buPROPion 100 mg PO DAILY - Plan Plan:: ASSESSMENT -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 -Exacerbation since Friday -Fever last night -Pain worsened, described as 7-10/10 burn like sensation -Last exacerbation over 6 months ago -No history of MRSA -Wound culture gram-positive cocci likely staph - -Follows with psychiatry for depression, compliant with medications -Daily Bupropion -As needed clonazepam, uses TID every other day -Denies suicidal or homicidal ideation PLAN BY PROBLEMS Darier's disease Cellulitis Herpes zoster versus HSV 1 -Rocephin and Vancomycin -Follow up on wound and blood culture -Trend temperature and panculture if febrile -Pain control -Start valacyclovir 1000 mg 3 times daily for 7 days Depression Anxiety -Continue Bupropion and clonazepam -Confirm dose of bupropion PROPHYLAXIS DVT-ambulation GI-contraindicated CODE STATUS: FULL CODE DISPOSITION: Patient will be admitted for IV antibiotics and pain control Discharged tomorrow pending culture results
[2020-03-28] MEDS: valACYclovir 1,000 MG Tab PO SCH ×3 (09:59→20:15)
[2020-03-28] MEDS: Morphine 2 MG/ML SYRINGE IVPUSH PRN ×2 (10:09→16:00)
[2020-03-28] MEDS: buPROPion 150 MG Tab.ER PO SCH (12:40)
[2020-03-28] MEDS ORDERED: cefTRIAXone 2 GM in Sodium Chloride 0.9% 100 ML IV SCH (14:30)
[2020-03-28] MEDS ORDERED: oxyCODONE 5 MG Tab PO PRN (17:32)
[2020-03-28] MEDS: Mupirocin Oint 22 GM Tube TOP SCH (20:16)
[2020-03-29] MEDS: Vancomycin 1 GM, Vancomycin 250 MG in Sodium Chloride 0.9% 250 ML IV SCH (06:12)
[2020-03-29] MEDS: buPROPion 150 MG Tab.ER PO SCH (09:15)
[2020-03-29] MEDS: valACYclovir 1,000 MG Tab PO SCH (09:15)
[2020-03-29] MEDS: Mupirocin Oint 22 GM Tube TOP SCH (09:16)
[2020-03-29 09:44] VITALS: BP 141/67; PULSE 58
--- NOTE | 2020-03-29 10:57 | PCM.DCSUM1 ---
Discharge Summary - Hospital Course HPI Initial Comments: Patient is a 34-year-old male who presents to the emergency department with complaints of skin infection to his face. 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 He states that he feels the area on his right cheek is the worst. He has had no nausea and vomiting, however he was feeling chilled last night. He was seen in the clinic prior to coming to the ER and was found to have a temperature of 101. Temperature on triage was found to be 99.5. Patient denies any known history of MRSA. Diagnosis: Stroke: No - Discharge Data Discharge Date: 03/29/20 Discharge Disposition: Home, Self-Care 01 Condition: Good - Referral to Home Health Primary Care Physician: Sandip Parham Jr, MD - Patient Summary/Data Hospital Course: Patient was admitted for facial cellulitis secondary to his Darier's disease. He had a mild white count with left shift. No significant fevers. He was started on Rocephin and vancomycin. 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 On the day of discharge cultures of the wound on his face grew out MSSA and he was discharged on Keflex, Bactroban, and valacyclovir. At time of discharge patient was in less pain and the rash was less red and swollen. - Patient Instructions Diet: Usual Diet as Tolerated Activity: As Tolerated Driving: May Drive Today Showering/Bathing: May Shower Other/Special Instructions: Follow up with primary care provider next week. - Discharge Plan *PRESCRIPTION DRUG MONITORING PROGRAM REVIEWED*: No *COPY OF PRESCRIPTION DRUG MONITORING REPORT IN PATIENT YUDITH: No Prescriptions/Med Rec: RX: cephALEXin [Keflex] 500 mg PO QID #32 cap RX: valACYclovir [Valtrex] 1,000 mg PO TID #18 tablet Home Medications: Home Meds RX: ClonazePAM [KlonoPIN] 0.5 mg PO TID PRN 12/26/18 [History] RX: Mupirocin Oint [Bactroban Oint] 1 gm TOP TID tube 03/29/20 [Rx] RX: buPROPion [buPROPion XL] 300 mg PO DAILY tab.er 03/29/20 [Rx] RX: cephALEXin [Keflex] 500 mg PO QID #32 cap 03/29/20 [Rx] RX: valACYclovir [Valtrex] 1,000 mg PO TID #18 tablet 03/29/20 [Rx] Patient Handouts: Cellulitis, Adult Referrals: Sandip Parham Jr, MD [Primary Care Provider] - 04/05/20 9:00 am (Please check in at 8:30am.) - Discharge Summary/Plan Comment DC Time >30 min.: Yes Discharge Summary/Plan Comment: Discharged home in good condition. Follow-up with primary care provider. - General Info Date of Service: 03/29/20 Admission Dx/Problem (Free Text: Cellulitis Subjective Update: Patient states that he is feeling better. He has less pain. Functional Status: Reports: Pain Controlled - Review of Systems General: Reports: No Symptoms HEENT: Reports: Other (Facial rash) Pulmonary: Reports: No Symptoms Cardiovascular: Reports: No Symptoms Gastrointestinal: Reports: No Symptoms Musculoskeletal: Reports: No Symptoms Psychiatric: Reports: No Symptoms - Patient Data Vitals - Most Recent: Last Vital Signs Temp 97.9 F 03/29/20 08:06 Pulse 58 L 03/29/20 08:06 Resp 16 03/29/20 08:06 BP 141/67 H 03/29/20 08:06 Pulse Ox 99 03/29/20 08:06 Weight - Most Recent: 254 lb 6.4 oz I&O - Last 24 hours: Intake & Output 03/28/20 03/29/20 03/29/20 22:59 06:59 14:59 Intake Total 2124 950 Output Total 1000 1600 Balance 1124 -650 Lab Results - Last 24 hrs: Laboratory Results - last 24 hr 03/28/20 03/28/20 Range/Units 10:05 13:50 Vancomycin Trough 12.2 (10.0-20.0) MRSA (PCR) Negative EDUARDO Results - Last 24 hrs: Microbiology 03/27/20 13:55 Wound Culture - Final Skin / Skin Scrapings - Forehead Staphylococcus Aureus 03/27/20 14:05 Aerobic Blood Culture - Preliminary Blood - Venous NO GROWTH AFTER 1 DAY Anaerobic Blood Culture - Preliminary NO GROWTH AFTER 1 DAY 03/27/20 14:10 Aerobic Blood Culture - Preliminary Blood - Venous - Lab Draw NO GROWTH AFTER 1 DAY Anaerobic Blood Culture - Preliminary NO GROWTH AFTER 1 DAY Med Orders - Current: Current Medications Acetaminophen (Tylenol) 650 mg PO Q4H PRN PRN Reason: Pain (Mild 1-3)/fever Bupropion HCl (Wellbutrin Xl) 300 mg PO DAILY [facility] Last Admin: 03/29/20 09:15 Dose: 300 mg Cephalexin (Keflex) 500 mg PO QID [facility] Clonazepam (Klonopin) 0.5 mg PO TID PRN PRN Reason: Anxiety Ketorolac Tromethamine (Toradol) 30 mg IV Q6H PRN PRN Reason: Pain (moderate 4-6) Last Admin: 03/28/20 12:44 Dose: 30 mg Mupirocin (Bactroban Oint) 0 gm TOP TID [facility] Last Admin: 03/29/20 09:16 Dose: 1 applic Ondansetron HCl (Zofran) 4 mg IV Q6H PRN PRN Reason: Nausea/Vomiting Oxycodone HCl (Oxycodone) 5 mg PO Q4H PRN PRN Reason: Pain/Fever Last Admin: 03/28/20 20:15 Dose: 5 mg Sodium Chloride (Saline Flush) 10 ml FLUSH ASDIRECTED PRN PRN Reason: Keep Vein Open Last Admin: 03/27/20 14:22 Dose: 10 ml Valacyclovir HCl (Valtrex) 1,000 mg PO TID [facility] Last Admin: 03/29/20 09:15 Dose: 1,000 mg Discontinued Medications Ceftriaxone Sodium 2 gm/ (Sodium Chloride) 100 mls @ 200 mls/hr IV ONETIME ONE Stop: 03/27/20 14:30 Last Admin: 03/27/20 14:21 Dose: 200 mls/hr Vancomycin HCl 2 gm/ Sodium (Chloride) 500 mls @ 250 mls/hr IV ONETIME ONE Stop: 03/27/20 16:44 Last Admin: 03/27/20 15:30 Dose: 250 mls/hr Vancomycin HCl 1 gm/Vancomycin HCl 250 mg/ Sodium Chloride 250 mls @ 166.667 mls/hr IV Q8H [facility] Last Admin: 03/29/20 06:12 Dose: 166.667 mls/hr Magnesium Sulfate 2 gm/ Premix 50 mls @ 25 mls/hr IV ONETIME ONE Stop: 03/28/20 10:25 Last Admin: 03/28/20 10:00 Dose: 25 mls/hr Ceftriaxone Sodium 2 gm/ (Sodium Chloride) 100 mls @ 200 mls/hr IV Q24H [facility] Last Admin: 03/28/20 14:56 Dose: 200 mls/hr Morphine Sulfate (Morphine) 2 mg IVPUSH Q6H PRN PRN Reason: Pain (severe 7-10) Stop: 03/28/20 17:04 Last Admin: 03/28/20 16:00 Dose: 2 mg Vancomycin HCl (Pharmacy To Dose - Vancomycin) 1 dose .XX ONETIME PRN PRN Reason: RX TO DOSE VANCO Last Admin: 03/27/20 15:30 Dose: 2 gram - Exam General: Reports: Alert, Oriented HEENT: Reports: Pupils Equal, Mucous Membr. Moist/[place]ck: Reports: Supple Lungs: Reports: Clear to Auscultation, Normal Respiratory Effort Cardiovascular: Reports: Regular Rate, Regular Rhythm GI/Abdominal Exam: Normal Bowel Sounds, Soft, Non-Tender, No Organomegaly, No Distention, No Abnormal Bruit, No Mass, Pelvis Stable Extremities: Normal Inspection, Normal Range of Motion, Non-Tender, No Pedal Edema, Normal Capillary Refill Skin: Reports: Rash (Decreased erythema and drainage from the rash on his face. There are some crusting lesions but less hyperkeratotic pustular lesions. Decreased tenderness.) Wound/Incisions: Reports: Healing Well Neurological: Reports: No New Focal Deficit Psy/Mental Status: Reports: Alert, Normal Affect, Normal Mood
[2020-03-29] MEDS ORDERED: Cephalexin 500 MG Cap PO SCH (13:00)
== END 2020-03-29 11:28 | disposition home or self-care (01) | DRG 383 ==
LOC: JD.ED 13:33 → JD.MS 17:03
PROVIDERS: ADMIT Internal Medicine; ATTEND Internal Medicine
DX: L03.211 Cellulitis of face (principal); Q82.8 Other specified congenital malformations of skin; B95.61 Methicillin susceptible Staphylococcus aureus infection as the cause of diseases classified elsewhere; F32.9 Major depressive disorder, single episode, unspecified; F41.9 Anxiety disorder, unspecified; B02.9 Zoster without complications; B00.9 Herpesviral infection, unspecified; Z88.5 Allergy status to narcotic agent; Z79.899 Other long term (current) drug therapy
CPT/HCPCS: 36415; 80048; 80053; 80202; 83605; 83735; 84100; 85025; 86140; 87040; 87070; 87077; 87186; 87641; 96365; 96366; 96367; 99222; 99232; 99239; 99283; 99284-25; A9270-GY; J0696; J1885; J2270; J3370; J3475; J7040; J7050